=== PATIENT | female | born 1955 | race Caucasian/White ===

== ENCOUNTER 2023-11-01 09:15 | Emergency (ER) | payer BC, MEDICARE, SELFPAY ==
[2023-11-01 09:24] VITALS: BP 145/80
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
== END 2023-11-01 10:18 | disposition home or self-care (01) ==
LOC: EMR 09:15
PROVIDERS: EMERGENCY PHYSICIAN Emergency Medicine
DX: S29.012A Strain of muscle and tendon of back wall of thorax, initial encounter (principal); X58.XXXA Exposure to other specified factors, initial encounter
CPT/HCPCS: 99283; 71101

== ENCOUNTER → 2023-12-17 10:19 | Outpatient (REF) | payer OTHER, SELFPAY ==
[2023-12-17 10:58] LABS: % Basophils 1.1 % (0-2); % Eosinophils 4.2 % (0-6); % Immature Granulocytes 0.3 % (0-0.5); % Lymphocytes 31.3 % (20.5-51.1); % Monocytes 7.4 % (1.7-9.3); % Neutrophils 55.7 % (42.2-75.2); Absolute Basophils 0.1 10^3/uL (0-0.2); Absolute Eosinophils 0.3 10^3/uL (0-0.7); Absolute Monocytes 0.5 10^3/uL (0.1-0.6); Absolute Neutrophils 3.6 10^3/uL (1.4-6.5); Hematocrit 40.3 % (37.0-47.0); Mean Corp Hgb Conc. 34.7 g/dL (33.0-37.0); Mean Corpuscular Hgb 31.1 pg (27.0-31.0); Mean Corpuscular Volume 89.6 fL (81.0-99.0); Mean Platelet Volume 9.6 fL (7.4-10.4); Nucleated Red Blood Cells % 0 %; Platelet Count 311 10^3/uL (130-400); Red Cell Dist. Width 11.9 % (11.5-14.5); White Blood Cell Count 6.4 10^3/uL (4.8-10.8)
[2023-12-17 11:28] LABS: ALT (SGPT) 31 U/L (0-35); AST (SGOT) 31 U/L (14-36); Albumin 4.9 g/dl (3.5-5.0); Alkaline Phosphatase 51 U/L (38-126); Amylase 64 U/L (30-110); Blood Urea Nitrogen 17 mg/dl (7-17); Carbon Dioxide 26 mmol/L (22-30); Chloride 105 mmol/L (98-107); Glucose 94 mg/dl (70-99); HDL Cholesterol 66 mg/dl; LDL Cholesterol, Calculated 43 mg/dl; Lipase 77 U/L (23-300); Potassium 4.7 mmol/L (3.5-5.1); Sodium 137 mmol/L (135-145); Total Bilirubin 0.7 mg/dl (0.2-1.3); Total Cholesterol 154 mg/dl (50-199); Total Protein 7.6 g/dl (6.3-8.2); Triglyceride 228 mg/dl (10-149); Very Low Density Lipoprotein 45 mg/dl (0-30); eGFR > 60.00
[2023-12-17 11:55] LABS: TSH 0.57 uIU/ml (0.47-4.68)
== END ==
LOC: REG 10:19
PROVIDERS: ATTENDING PHYSICIAN Nurse Practitioner
DX: I25.119 Atherosclerotic heart disease of native coronary artery with unspecified angina pectoris (principal); E78.5 Hyperlipidemia, unspecified; Z00.00 Encounter for general adult medical examination without abnormal findings; Z76.89 Persons encountering health services in other specified circumstances; Z95.5 Presence of coronary angioplasty implant and graft; R10.13 Epigastric pain; M54.16 Radiculopathy, lumbar region
CPT/HCPCS: 36415; 80053; 80061; 82150; 83690; 84443; 85025

== ENCOUNTER 2024-07-23 10:56 | Inpatient (IN) | payer OTHER, SELFPAY ==
[2024-07-23 04:31] VITALS: BP 143/73
--- NOTE | 2024-07-23 05:13 | ED.GENMED ---
History of Present Illness
General
Chief Complaint: Abdominal Pain
Time Seen by Provider: 07/23/24 04:58
History of Present Illness
History of Present Illness:
69-year-old female presents emergency department complaints of epigastric pain. She says she has been getting this pain on and off for about a year, it can last for a week at a time and gets better on its own prickly when she changes her diet.
With this pain, she will feel very nauseous and usually needs to self-induced vomiting. The pain started about 10 days ago, located in the epigastric area but also sometimes located in the back as well. The pain is not ripping or tearing, does not
radiate from the abdomen to the back, and is not associated with chest pain, dyspnea, fever, chills, lower abdominal pain, urinary symptoms, diarrhea, constipation. She started to feel better a few days ago but at around 10 PM last night she again
started to feel the 'pressure' in the epigastric area which is worse than it has been in the past. This prompted her visit here to the ER. She has never had an evaluation of her gallbladder.
Past History
Past History
ED Past Medical History: CAD, HTN and Hypercholesterolemia
ED Past Surgical History: Gynecological
Social History
Tobacco: Non-smoker
Alcohol: None
Drug: None
Personal:
Living: with family
Phy Exam
Physical Exam
Physical Exam:
GENERAL: Alert , in no apparent distress
EYE: pupils equal and reactive
NECK: Supple, no significant adenopathy.
ENT: o/p clr, mmm.
CARDIAC: Regular rate and rhythm .
LUNGS: Clear breath sounds bilaterally, no acute respiratory distress, no wheezes/rales/rhonchi
ABDOMEN: Soft, mild right upper quadrant epigastric tenderness, no r/g, no cvat
NEUROLOGICAL: Alert and oriented, no focal neuro deficits
SKIN: Warm and dry, skin intact.
MUSCULOSKELETAL: No edema, well perfused.
PSYCH: Normal and appropriate interaction.
Course
Orders/Labs/Results
Orders:
Orders
07/23/24 05:05
Complete Blood Count/With Diff Urgent
Comprehensive Metabolic Panel Urgent
Direct Bilirubin Urgent
Comment: ADDON
GGTP Urgent
Comment: ADDON
Lipase Urgent
Comment: ADD ON
07/23/24 05:07
Urinalysis Reflex To Culture Urgent
Date Specimen was Collected: 07/23/24
Time Specimen was Collected: 05:05
07/23/24 05:13
Electrocardiogram (*1) Stat
Reason for Study: Abdominal Pain
EKG- Treatment ONCE
US Abdomen Complete/Upper Urgent
Comment:
Reason For Exam: upper abd pain
07/23/24 05:15
Add On- LAB Urgent
Tests Added?: lipase
07/23/24 07:16
Piperacillin/Tazo 3.375 Gram [Zosyn] 3.375 gram in 50 ml IV NOW
07/23/24 Lunch
NPO
Allow oral meds: Yes
Allow clear liquids: Sips of Clears
07/23/24 10:38
Admit/Transfer Patient As Directed
Co-Sign Provider:
Level of Care: Inpatient admission
Assign to:: Medical/Surgical
Physician / Group: milligan/hospitalist
Diagnosis: pancreatitis
Reason for Hospitalization: pancreatitis
Expected length of stay greater than two midnights?: Yes
ELOS- Estimated Length of Stay in days: 3
I certify the patient meets the requirements for IP care: Yes
PRN Pain Medication Management As Directed
May give lesser potent ordered pain med per pt: Yes
preference::
Protocol:: Medication orders for pain may be administered in a
manner that supports deferring to patient preference
when the pt is:
- Requesting an ordered lesser potent pain medication.
Least to most potent pain medications are defined
as: acetaminophen < NSAID < tramadol < opioids
(morphine, oxycodone, hydromorphone).
- Requesting a lesser dose of the same medication IF
ORDERED.
- Requesting a less intrusive route of administration
if both routes are prescribed by the provider (PO <
IV).
07/23/24 10:39
Code Status As Directed
Resuscitation Status: Full Code
07/23/24 12:54
GASTROINTESTINAL CONSULT Routine
Consulting Provider: Lin Landon
Was physician already notified: Yes
07/23/24 13:09
Acetaminophen [Tylenol] 650 mg PO Q4HPRN PRN
Bisacodyl [Dulcolax] 10 mg RECTAL [id number] PRN
Docusate W/Senna [Senokot-S] 1 tablet PO BIDPRN PRN
HYDROmorphone [Dilaudid] 0.25 mg IV Q4HPRN PRN
Lactated Ringers [Lr] 1,000 ml IV 250 mls/hr
Ondansetron Injectable [Zofran] 4 mg IV Q6HPRN PRN
Oxycodone [Roxicodone] 5 mg PO Q4HPRN PRN
Polyethylene Glycol Powder [Miralax] 17 grams PO DAILYPRN PRN
07/23/24 13:09
Activity As Directed
Activity Level: Out of Bed-Early Mobility
Vital Signs As Directed
Frequency: Per unit guidelines
DX Deep Vein Thrombosis Video Routine
07/23/24 18:00
Enoxaparin Sodium [Lovenox] 40 mg SC QPM
07/24/24 06:23
Complete Blood Count/With Diff IN AM
Comprehensive Metabolic Panel IN AM
Hemoglobin A1c [Glycohemoglobin (HgbA1c)] IN AM
Lipase IN AM
Lipid Profile [Cardiovascular Evaluation] IN AM
07/25/24 07:30
Complete Blood Count/With Diff IN AM
Comprehensive Metabolic Panel IN AM
Lipase IN AM
Abnormal Lab Results
07/23/24
05:05
MCH 31.8 H pg
(27.0-31.0)
Absolute Neuts (auto) 7.9 H 10^3/uL
(1.4-6.5)
Absolute Monos (auto) 0.9 H 10^3/uL
(0.1-0.6)
Lymphocytes % 13.2 L %
(20.5-51.1)
BUN 21 H mg/dl
(7-17)
Glucose 121 H mg/dl
(70-99)
Calcium 10.5 H mg/dl
(8.4-10.2)
Total Bilirubin 1.6 H mg/dl
(0.2-1.3)
Direct Bilirubin 1.0 H mg/dl
(0.0-0.4)
GGT 538 H U/L
(12-43)
AST 671 H* U/L
(14-36)
ALT 610 H* U/L
(0-35)
Lipase 1617 H* U/L
(23-300)
07/23/24 05:05
07/23/24 05:05
Vital Signs
Initial and Last Documented VS:
Initial Vital Signs
Temp Pulse Resp Pulse Ox
98.4 F 79 18 97
07/23/24 04:26 07/23/24 04:26 07/23/24 04:26 07/23/24 04:26
Last Documented Vital Signs
Temp Pulse Resp BP Pulse Ox
97.4 F 59 18 114/51 99
07/24/24 23:54 07/24/24 23:54 07/24/24 23:54 07/24/24 23:54 10/27/24 23:54
*Critical Care Note
Total Time (30-74mins, 75-104mins- exclusive of procedures): Not Applicable
Update Note
Update Note:
Patient presents to the Emergency Department with abdomen and back pain
Number and Complexity of Problems Addressed at the Encounter
� Chronic conditions affecting care:
� Acute Exacerbation and/or Progression of Chronic Illness:
� Differential Diagnosis includes: But not limited to pancreatitis, cholecystitis, cholelithiasis, ACS, etc.
Amount and/or Complexity of Data to be Reviewed and Analyzed
� I performed an independent evaluation of and my interpretation is:
EKG: Read by me, normal sinus rhythm, normal rate, normal axis, no acute ischemia
CT:
Xrays:
Laboratory Studies: lft's, lipase elevaated suspicious for gallstone pancreatitis
Other:us Cholelithiasis with borderline gallbladder wall thickening. Negative sonographic Lua's sign. No findings to suggest biliary tract dilatation.
� Review of other/old records reveals:
� Clinical information was obtained by an independent historian:
� Prescriptions/Medications Considered but not given:
� Further testing considered but not performed:
Risk of Complications and/or Morbidity or Mortality of Patient Management
� Social determinants of health affecting care:
� Discussion with other providers (PCP, Hospitalists, Consultants, etc):
� Escalation of care including admission/observation vs risk of discharge considered:713...pt nontoxic, aware of dx and plan. Based on hx/ phys and labs, suspect gallstone pancreatitis, however US shows nl duct size? May need
MRCP to further evaluate. Consult to GI via tt, will admit to hospitalist, start abx.
ED Attending Note
-
Portions of this chart may have been created with voice recognition software.� Occasional wrong word or��sound alike� substitutions may have occurred due to the inherent limitations of voice recognition software.
Discharge Plan
Departure
Patient Disposition: Admit
Date of Disposition: 07/23/24
Time of Disposition: 07:17
Presentation/result/management discussed w/ accepting MD/DO: Hospitalist
Condition: Fair
Discharge Problem:
Gallstone pancreatitis
Interventions
Interventions:
*Risk Screen - Suicide Last Done: 07/23/24 13:44
*General Assessment Last Done: 07/23/24 04:26
*Neglect/Abuse Screening Last Done: 07/23/24 04:26
ED- Fall Risk Assessment Last Done: 07/23/24 05:11
*ED COVID-19 Vaccine History Last Done: 07/23/24 04:31
*Nursing Disposition Last Done: 07/23/24 13:30
UL-Cvfskr-Uukbzjafbu Assessment Last Done: 07/23/24 05:11
Discharge Date and Time
Discharge Date/Time: 07/23/24 13:30
[2024-07-23 05:19] LABS: Urine Albumin Negative (Neg - Trace); Urine Bilirubin Negative (Negative); Urine Character Slightly Cloudy (Clear); Urine Color Yellow; Urine Glucose Negative (Negative); Urine Ketone Negative (Negative); Urine Leukocyte Negative (Negative); Urine Nitrite Negative (Negative); Urine Occult Blood Negative (Negative); Urine Urobilinogen Negative (Neg - 1+); Urine pH 6.5 (5.0-9.0)
[2024-07-23 05:19] LABS: % Basophils 0.8 % (0-2); % Eosinophils 2.8 % (0-6); % Immature Granulocytes 0.2 % (0-0.5); % Lymphocytes 13.2 % (20.5-51.1); % Monocytes 8.1 % (1.7-9.3); % Neutrophils 74.9 % (42.2-75.2); Absolute Basophils 0.1 10^3/uL (0-0.2); Absolute Eosinophils 0.3 10^3/uL (0-0.7); Absolute Lymphocytes 1.4 10^3/uL (1.2-3.4); Absolute Monocytes 0.9 10^3/uL (0.1-0.6); Absolute Neutrophils 7.9 10^3/uL (1.4-6.5); Hematocrit 41.4 % (37.0-47.0); Hemoglobin 14.5 g/dL (12.0-16.0); Mean Corpuscular Hgb 31.8 pg (27.0-31.0); Mean Corpuscular Volume 90.8 fL (81.0-99.0); Mean Platelet Volume 10.1 fL (7.4-10.4); Nucleated Red Blood Cells % 0 %; Platelet Count 310 10^3/uL (130-400); Red Blood Cell Count 4.56 10^6/uL (4.20-5.40); Red Cell Dist. Width 11.7 % (11.5-14.5); White Blood Cell Count 10.6 10^3/uL (4.8-10.8)
[2024-07-23 05:42] LABS: Blood Urea Nitrogen 21 mg/dl (7-17)
[2024-07-23 05:48] LABS: ALT (SGPT) 610 U/L (0-35); AST (SGOT) 671 U/L (14-36); Alkaline Phosphatase 87 U/L (38-126); Calcium 10.5 mg/dl (8.4-10.2); Carbon Dioxide 26 mmol/L (22-30); Chloride 101 mmol/L (98-107); Glucose 121 mg/dl (70-99); Potassium 4.5 mmol/L (3.5-5.1); Sodium 140 mmol/L (135-145); Total Bilirubin 1.6 mg/dl (0.2-1.3); Total Protein 7.8 g/dl (6.3-8.2); eGFR > 60.00
[2024-07-23 06:16] LABS: Lipase 1617 U/L (23-300)
[2024-07-23 07:00] VITALS: BP 141/75
[2024-07-23 08:00] VITALS: BP 143/73
[2024-07-23] MEDS: ZOSYN 50 IV (08:32)
--- NOTE | 2024-07-23 09:13 | CON.GI ---
Consultation
-
Date/Time Consultation Requested: 07/23/2024
Date/Time Consultation Performed: 07/23/2024
Requesting Provider: Dr. Ellis
Performing Provider: Dr. Landon
Reason for Consultation: Epigastric pain
Medical History
Chief Complaint / HPI
Chief Complaint: Epigastric pain
History of Present Illness:
69-year-old female with history of hypertension, high cholesterol, CAD presenting with complaints of intermittent epigastric pain on and off in the last year, recent episode going on for the last 10 days with some radiation to the back. In the
emergency room, CBC was normal, CMP showed elevated total bilirubin at 1.6, AST of 671, ALT of 610, alkaline phosphatase of 87. Previous LFTs from November 2023 in normal range. Lipase was elevated at 1617. She had abdominal ultrasound that showed
cholelithiasis with borderline gallbladder wall thickening, no evidence of biliary ductal dilation and Lua sign was negative.
She reports that the pain would last for a few hours or sometimes a few days. Normally there is no radiation but today she did have some radiation to the back. No nausea or vomiting. No heartburn but she does report burping. No trouble
swallowing. Normal bowel pattern is 1 formed stool a day, no pushing or straining. No blood or black stool. No unintentional weight loss. Never had a colonoscopy.
No family history of colon cancer or colon polyps. History of gallbladder disease and aunts. Does not smoke or drink alcohol..
Past Medical History
Past Medical History: CAD, HTN and Hypercholesterolemia
Social History
Tobacco: Non-Smoker
Alcohol: None
Family History
Family History: Reviewed & Not Pertinent
Allergies / Home Medications
Allergy/AdvReac Type Severity Reaction Status Date / Time
NKA - No Known Allergies Allergy Unknown Uncoded 07/23/24 04:24
�Medication �Instructions �Recorded
ofloxacin 0.3 % eye drops 2 drp ophthalmic (eye) QID #5 mL 11/01/23
Review of Systems
-
All other systems: A 12 pt ROS was Negative except as stated above in HPI
Vital Signs
Temp Pulse Resp BP Pulse Ox
98.4 F 82 16 143/73 95
07/23/24 04:26 07/23/24 08:15 07/23/24 08:15 07/23/24 08:00 07/23/24 08:15
Physical Exam
Exam
HEENT: Normocephalic
Respiratory: Clear
Cardiac: S1/S2 and Regular Rhythm
GI: Soft, Non Tender, Non Distended and Normal Bowel Sounds
Neuro: AO x 3
Results
WBC 10.6 10^3/uL (4.8-10.8) 07/23/24 05:05
Hgb 14.5 g/dL (12.0-16.0) 07/23/24 05:05
Hct 41.4 % (37.0-47.0) 07/23/24 05:05
MCV 90.8 fL (81.0-99.0) 07/23/24 05:05
Plt Count 310 10^3/uL (130-400) 07/23/24 05:05
Absolute Neuts (auto) 7.9 10^3/uL (1.4-6.5) H 07/23/24 05:05
Sodium 140 mmol/L (135-145) 07/23/24 05:05
Potassium 4.5 mmol/L (3.5-5.1) 07/23/24 05:05
Chloride 101 mmol/L (98-107) 07/23/24 05:05
Carbon Dioxide 26 mmol/L (22-30) 07/23/24 05:05
BUN 21 mg/dl (7-17) H 07/23/24 05:05
Creatinine 1.0 mg/dL (0.6-1.0) 07/23/24 05:05
Calcium 10.5 mg/dl (8.4-10.2) H 07/23/24 05:05
Total Bilirubin 1.6 mg/dl (0.2-1.3) H 07/23/24 05:05
AST 671 U/L (14-36) H* 07/23/24 05:05
ALT 610 U/L (0-35) H* 07/23/24 05:05
Alkaline Phosphatase 87 U/L (38-126) 07/23/24 05:05
Lipase Cancelled 07/23/24 05:12
Diagnostic Image Results:
Prior GI Procedures:
EGD:
Colonoscopy:
Assessment / Plan
-
69-year-old female with history of hypertension, high cholesterol, CAD presenting with epigastric pain, elevated LFTs and ultrasound showing gallstones with some wall thickening, elevated lipase noted as well.
-Gallstone pancreatitis, ultrasound findings cannot rule out acute cholecystitis as well
OK for clear liquid diet.
Ringer lactate at 125 cc an hour
Will check MRI/MRCP to rule out choledocholithiasis.
Monitor electrolytes and replete
Eventually needs lap heber,await MRI/MRPC .
OP colonoscopy after d/c
Will follow
-
-
Thank you for consultation and allowing me to participate in the patient's care. Please call the university relations director GI physician during the after hours with any questions or concerns.
--- NOTE | 2024-07-23 10:42 | HPS.HSE ---
Family Physician
-
Family Physician: * NONE
Chief Complaint
-
abdomen discomfort
History of Present Illness
69-year-old female presenting to the hospital with complaint of abdominal pain with radiation to the back. States she has been getting abdominal pain on and off for the past 1 year. Usually it last for a week and then eventually gets better with
improvement in her diet. States with the abdominal pain she usually feels nauseous and she self induces vomiting which improves her symptoms. States abdominal discomfort/pain usually is located epigastric region. However now it was radiating to
her back which made her concerned to come into the ER. Denies any diarrhea. Has not seen PCP or other physician regards for the abdominal pain for the last 1 year. Denies any left-sided substernal chest pain, shortness of breath, PND, orthopnea
lower extremity edema or swelling. Denies any diarrhea. Denies any fevers or chills. Denies any prior history of gall stones or gallbladder related problem however has not seen a PCP or other physician for her abdominal discomfort. Denies
alcohol intake.
Medical History
Past Medical History
Past Medical History: Reports Other
Additional Past Medical History:
CAD status post angioplasty
Hypertension primary
Hyperlipidemia
Obesity
Past Surgical History: Reports Gynocological
Social History
Tobacco: Non-smoker
Alcohol: None
Drug: None
Living: With Family
Employment: Employed
Family History
Family History: Not pertinent
Allergies / Home Medications
Allergies reflects when Allergies were last updated in [employer].
Home Medications with original date entered in [employer]
Allergy/Medication List:
Allergies
Allergy/AdvReac Type Severity Reaction Status Date / Time
NKA - No Known Allergies Allergy Unknown Uncoded 07/23/24 04:24
Home Medications
ascorbic acid (vitamin C) 500 mg tablet (Vitamin C) 500 mg PO DAILY 07/23/24
biotin 10,000 mcg chewable tablet (Hair, Skin and Nails (biotin)) 20,000 mcg PO BID 07/23/24
calcium 500 mg (carb,gluconate)-magnesium 250 mg (gluc,oxide) tablet (Calcium Magnesium) 1 tab PO BID 07/23/24
ezetimibe 10 mg tablet 10 mg PO HS 07/23/24
lisinopril 10 mg tablet 10 mg PO DAILY 07/23/24
rosuvastatin 5 mg tablet 5 mg PO HS 07/23/24
Review of Systems
-
History Source: Patient
A 12 point ROS was completed and negative except as noted: Yes
Physical Exam
Vital Signs
Vital Signs
Temp Pulse Resp BP Pulse Ox
98.4 F 82 16 143/73 95
07/23/24 04:26 07/23/24 08:15 07/23/24 08:15 07/23/24 08:00 07/23/24 08:15
Physical Exam
General: Well Developed, Well Nourished and No Apparent Distress
HEENT: NormoCephalic, Moist mucous membranes and Atraumatic
Respiratory: Clear
Cardiac: S1/S2 and Regular Rhythm; No Murmur or Rub
GI: Soft, Non Tender, Non Distended and Normal Bowel Sounds; No Organomegaly
Rectal: Deferred by Provider
Musculoskeletal: No Clubbing, No Cyanosis and No Edema
Skin: Warm; No Rash
Neuro: Awake, Alert, Oriented, AO x 3, No Motor Deficits and Nonfocal/grossly intact
Psych: Calm
Laboratory Results
-
07/23/24 05:05
07/23/24 05:05
Laboratory Results
Total Bilirubin 1.6 mg/dl (0.2-1.3) H 07/23/24 05:05
AST 671 U/L (14-36) H* 07/23/24 05:05
ALT 610 U/L (0-35) H* 10/26/24 05:05
Alkaline Phosphatase 87 U/L (38-126) 07/23/24 05:05
Lipase Cancelled 07/23/24 05:12
Impression/Plan
-
#Transaminitis likely secondary to gallstone pancreatitis
#Epigastric pain likely secondary to pancreatitis likely secondary gallstones
NPO.
Start aggressive IV fluids LR 250 cc x 2 L and then decrease rate to 125 cc/h.
Hold further IV antibiotics. Afebrile. WBC normal mentation normal. BP stable.
Abdominal ultrasound with cholelithiasis with borderline gallbladder wall thickening. Negative Lua sign. No finding to suggest biliary tract dilatation
Probably will need further imaging either CT abdomen/pelvis versus MRCP
Pain control
IV fluids
Check lipid panel/A1C
Calcium 10.5 likely seen due to dehydration. No prior history of hypercalcemia.
Add direct Bili and GGT
IV PPI
Await further GI recs
CAD status post angioplasty
Hold statin
Primary hypertension
Continue with lisinopril
Hyperlipidemia
Hold statin for now
Continue Zetia
DVT prophylaxis with Lovenox
Full code
I spent a total of 77 minutes with the patient or on the floor. More than 50% of this time involved counseling and coordination of care.
--- NOTE | 2024-07-23 11:41 | CM ---
CM reviewed chart. CM introduced self and role. Antonia shared that she lives with her mother in a 2 story home. Her mother lives on the 1st floor and she lives on the 2nd floor. Patient drives. She drove herself to the hospital and would like to
drive herself home as well. She is independent. Does not utilize any DME but owns canes and walkers. She denies any +SDOHs. She has an active PCP and pharmacy.
ANTICIPATED DISCHARGE PLAN: Home with mother when medically cleared from hospital.
--- NOTE | 2024-07-23 13:30 | PTCARENOTE ---
Pt arrived to rm [id number] at this time from the ED. Pt AAOx3, denying any pain, no SOB, med/surg admission. See shift assessment for further detail. Oriented pt to rm, plan of care, ordering meals, PRN pain meds, call brown, reporting concerns etc- pt
verbalized understanding. Call brown within reach, will monitor.
[2024-07-23 13:32] VITALS: BP 147/79; BMI 29.1
[2024-07-23] MEDS: LR 1000 IV ×3 (14:24→22:26)
[2024-07-23] MEDS: PROTONIX IV 40 MG IV (14:25)
[2024-07-23] MEDS: NSS (PRESERVATIVE FREE) 10 ML IV (14:25)
[2024-07-23 15:23] VITALS: BP 149/74
[2024-07-23 17:00] LABS: GGTP 538 U/L (12-43)
[2024-07-23] MEDS: ZETIA 10 MG PO (21:33)
[2024-07-23 23:33] VITALS: BP 126/68
[2024-07-24] MEDS: LR 1000 IV ×2 (05:57→17:46)
[2024-07-24 07:55] VITALS: BP 137/66
[2024-07-24 08:01] LABS: % Immature Granulocytes 0.2 % (0-0.5); % Monocytes 8.8 % (1.7-9.3); Absolute Basophils 0.1 10^3/uL (0-0.2); Absolute Eosinophils 0.6 10^3/uL (0-0.7); Absolute Lymphocytes 1.8 10^3/uL (1.2-3.4); Absolute Monocytes 0.5 10^3/uL (0.1-0.6); Absolute Neutrophils 2.1 10^3/uL (1.4-6.5); Hemoglobin 12.4 g/dL (12.0-16.0); Mean Corp Hgb Conc. 34.4 g/dL (33.0-37.0); Mean Corpuscular Hgb 31.3 pg (27.0-31.0); Mean Corpuscular Volume 90.9 fL (81.0-99.0); Mean Platelet Volume 10.5 fL (7.4-10.4); Nucleated Red Blood Cells % 0 %; Platelet Count 250 10^3/uL (130-400); Red Blood Cell Count 3.96 10^6/uL (4.20-5.40); Red Cell Dist. Width 11.9 % (11.5-14.5); White Blood Cell Count 5.1 10^3/uL (4.8-10.8)
[2024-07-24 08:15] LABS: ALT (SGPT) 551 U/L (0-35); AST (SGOT) 310 U/L (14-36); Alkaline Phosphatase 68 U/L (38-126); Blood Urea Nitrogen 12 mg/dl (7-17); Calcium 9.8 mg/dl (8.4-10.2); Carbon Dioxide 25 mmol/L (22-30); Chloride 107 mmol/L (98-107); Estimated Creatinine Clearance 56 ml/min; Glucose 88 mg/dl (70-99); HDL Cholesterol 51 mg/dl; LDL Cholesterol, Calculated 44 mg/dl; Lipase 101 U/L (23-300); Potassium 4.5 mmol/L (3.5-5.1); Sodium 141 mmol/L (135-145); Total Bilirubin 0.6 mg/dl (0.2-1.3); Total Cholesterol 129 mg/dl (50-199); Total Protein 6.1 g/dl (6.3-8.2); Triglyceride 174 mg/dl (10-149); Very Low Density Lipoprotein 34 mg/dl (0-30); eGFR > 60.00
[2024-07-24] MEDS: PROTONIX IV 40 MG IV (08:54)
[2024-07-24] MEDS: NSS (PRESERVATIVE FREE) 10 ML IV (08:54)
[2024-07-24] MEDS: ZESTRIL 10 MG PO (10:45)
--- NOTE | 2024-07-24 10:52 | W.PN.HOSP.TC ---
Today's Communication/Plan
-
Await MRCP results
IVF in the interim
GI recs
trend lfts
Assessment / Plan
Assessment / Plan
General: Well Developed, Well Nourished and No Apparent Distress
HEENT: NormoCephalic, Moist mucous membranes and Atraumatic
Respiratory: Clear
Cardiac: S1/S2 and Regular Rhythm; No Murmur or Rub
GI: Soft, Non Tender, Non Distended and Normal Bowel Sounds; No Organomegaly
Rectal: Deferred by Provider
Musculoskeletal: No Clubbing, No Cyanosis and No Edema
Skin: Warm; No Rash
Neuro: Awake, Alert, Oriented, AO x 3, No Motor Deficits and Nonfocal/grossly intact
Psych: Calm
#Transaminitis likely secondary to gallstone pancreatitis
#Epigastric pain likely secondary to pancreatitis likely secondary gallstones
NPO and will for MRI results.
s/p IV fluids LR 250 cc x 2 L and then decreased rate to 125 cc/h.
Hold further IV antibiotics. Afebrile. WBC normal mentation normal. BP stable.
Abdominal ultrasound with cholelithiasis with borderline gallbladder wall thickening. Negative Lua sign. No finding to suggest biliary tract dilatation
MRCP pending fortoday.
Pain control
Lipid panel noted
Calcium 10.5 likely seen due to dehydration. No prior history of hypercalcemia. Improved
LFTs are improving. ?probably passed gallstone
Lipase downtrended.
IV PPI
Await further GI recs
CAD status post angioplasty
Hold statin
Primary hypertension
Continue with lisinopril
Hyperlipidemia
Hold statin for now
Continue Zetia
DVT prophylaxis with Lovenox
Full code
Anticipated Discharge: > 48 hours
Subjective/Interval History
-
Date of Service: July 24, 2024
denies abd pain or nausea or vomiting
Objective Data
-
Labs:
Laboratory Results
07/24/24
06:23
WBC 5.1
Hgb 12.4
Hct 36.0 L
Plt Count 250
Sodium 141
Potassium 4.5
Chloride 107
Carbon Dioxide 25
BUN 12
Creatinine 0.9
Glucose 88
Calcium 9.8
Total Bilirubin 0.6 D
AST 310 H
ALT 551 H*
Alkaline Phosphatase 68
Vital Signs:
Vital Signs
Temp Pulse Resp BP Pulse Ox
98 F 66 16 132/67 94
07/24/24 07:55 07/24/24 10:45 07/24/24 07:55 07/24/24 10:45 07/24/24 08:00
I&O
07/23/24 07/24/24 07/25/24
06:59 06:59 06:59
Intake Total 2870 / 2870
Balance 2870 / 2870
Data Reviewed
-
Total Time Spent with Patient (in minutes): 51
[2024-07-24 12:47] LABS: Glycohemoglobin (HgbA1c) 5.4 % (4.0-5.6)
--- NOTE | 2024-07-24 14:01 | W.PN.GI.CBS2 ---
Today's Communication / Plan
-
-Gallstone pancreatitis, ultrasound findings cannot rule out acute cholecystitis as well
MRI with MRCP showing multiple small gallstones without any evidence of acute cholecystitis or choledocholithiasis.
LFTs trending down, bilirubin normalized. Lipase normalized.
Symptoms of epigastric pain with transient elevation in lipase suggesting pancreatitis likely related to gallstones.
Given no symptoms, okay with low-fat diet.
Surgical evaluation for eventual laparoscopic cholecystectomy
OP colonoscopy after d/c
Assessment / Plan
-
69-year-old female with history of hypertension, high cholesterol, CAD presenting with epigastric pain, elevated LFTs and ultrasound showing gallstones with some wall thickening, elevated lipase noted as well.
-Gallstone pancreatitis, ultrasound findings cannot rule out acute cholecystitis as well
MRI with MRCP showing multiple small gallstones without any evidence of acute cholecystitis or choledocholithiasis.
LFTs trending down, bilirubin normalized. Lipase normalized.
Symptoms of epigastric pain with transient elevation in lipase suggesting pancreatitis likely related to gallstones.
Given no symptoms, okay with low-fat diet.
Surgical evaluation for eventual laparoscopic cholecystectomy
OP colonoscopy after d/c
Subjective
Subjective
Date of Service: July 24, 2024
Patient denies any abdominal pain, nausea or vomiting. Feels well.
Objective
Data Reviewed
Laboratory Data:
Laboratory Results
07/24/24 06:23
07/24/24 06:23
Laboratory Results
Total Bilirubin 0.6 mg/dl (0.2-1.3) D 07/24/24 06:23
AST 310 U/L (14-36) H 07/24/24 06:23
ALT 551 U/L (0-35) H* 07/24/24 06:23
Alkaline Phosphatase 68 U/L (38-126) 07/24/24 06:23
Lipase 101 U/L (23-300) 07/24/24 06:23
Vital Signs and I&O:
Vital Signs
Temp Pulse Resp BP Pulse Ox
98 F 66 16 132/67 94
07/24/24 07:55 07/24/24 10:45 07/24/24 07:55 07/24/24 10:45 07/24/24 08:00
I&O
07/23/24 07/24/24 07/25/24
06:59 06:59 06:59
Intake Total 2870 / 2870
Balance 2870 / 2870
Physical Exam
Physical Exam
GI: Soft, Non Distended and Non Tender
[2024-07-24 15:06] VITALS: BP 135/63
--- NOTE | 2024-07-24 16:15 | CON.GS ---
Medical History
-
Chief Complaint: abdominal pain
History of Present Illness:
Ms Harper is a patient with a h/o CAD, KS and HTN who presented through the ED with epigastric and band like pain across her upper abdomen. She reports a history of intermittent pain just below the epigastric area with heaviness over the past
year. She found that self inducing vomiting helped somewhat with this. She has also been avoiding high fat foods and eating healthily. She notes that she can go a few months without an episode and then have several within the course of a few days. A
week ago, she began having a similar episode after having a roast beef sandwich but vomiting did not help. She notes the pain was intermittent through the week and since it was a little higher; she became concerned it was her heart and presented to
the ED for evaluation. She denies fevers or chills. She denies jaundice or acholic stools but notes that for the last week her urine has been very dark.
Past Medical History
Past Medical History: CAD (s/p angioplasty), HTN, Hypercholesterolemia, KS and Other (obesity)
Past Surgical History: Gynecological (D&C)
Social History
Tobacco: Non-Smoker
Alcohol: None
Living: With Family
Employment: Employed (owns a [employer])
Family History
Family History: Reviewed & Not Pertinent
Allergies / Home Medications
Allergy/AdvReac Type Severity Reaction Status Date / Time
No Known Allergies Allergy Unverified 07/23/24 14:33
�Medication �Instructions �Recorded �Confirmed �Type
ascorbic acid (vitamin C) 500 mg 500 mg PO DAILY Supplement 07/23/24 07/23/24 History
tablet (Vitamin C)
biotin 10,000 mcg chewable tablet 20,000 mcg PO BID Supplement 07/23/24 07/23/24 History
(Hair, Skin and Nails (biotin))
calcium 500 mg 1 tab PO BID Supplement 07/23/24 07/23/24 History
(carb,gluconate)-magnesium 250 mg
(gluc,oxide) tablet (Calcium
Magnesium)
ezetimibe 10 mg tablet 10 mg PO HS High Cholesterol 07/23/24 07/23/24 History
lisinopril 10 mg tablet 10 mg PO DAILY Blood Pressure 07/23/24 07/23/24 History
rosuvastatin 5 mg tablet 5 mg PO HS High Cholesterol 07/23/24 07/23/24 History
Review of Systems
-
History Source: Patient
All other systems: Negative unless noted
A 10 point review of systems was completed, and was negative except as per HPI.
Physical Exam
Vital Signs
Temp Pulse Resp BP Pulse Ox
98 F 87 16 135/63 98
07/24/24 15:06 07/24/24 15:06 07/24/24 15:06 07/24/24 15:06 07/24/24 15:06
07/23/24 07/24/24 07/25/24
06:59 06:59 06:59
Actual Weight 72.03 kg
Body Mass Index (BMI) 29.1
Lab Results
07/24/24 06:23
07/24/24 06:23
WBC 5.1 10^3/uL (4.8-10.8) 07/24/24 06:23
Hgb 12.4 g/dL (12.0-16.0) 07/24/24 06:23
Hct 36.0 % (37.0-47.0) L 07/24/24 06:23
Plt Count 250 10^3/uL (130-400) 07/24/24 06:23
Abs Immat Gran (auto) 0.0 10^3/uL (0-0.05) 07/24/24 06:23
Neutrophils % 42.0 % (42.2-75.2) L 07/24/24 06:23
Physical Exam
General: Well Developed and Well Nourished
HEENT: Moist Mucous Membranes
Respiratory: Non Labored Respirations
GI: Soft, Non Tender and Non Distended
Skin: Warm and Dry
Neuro: Awake
Psych: Calm
Data Reviewed
-
Radiology: Image Personally Visualized and interpreted (cholelithiasis and borderline gallbladder wall thickening), Report Reviewed by me and Discussed with Patient
MRI: Image Personally Visualized and interpreted (Multiple small gallstones. No evidence of acute cholecystitis. No ducts within the CBD), Report Reviewed by me, Discussed with Physician and Discussed with Patient
Labs: Labs Reviewed by me
Assessment / Plan
-
69 yo female with h/o KS and CAD with biliary colic symptoms over the past year presenting with persistent pain. Labs and exams consistent with gallstone pancreatitis. MRCP without choledocholithiasis but given labs and symptoms on presentation,
suspect passed stone. She is afebrile with stable vital signs and no leukocytosis. Lipase and bilirubin have normalized with improvement in transaminitis. Pain has resolved.
Would recommend cholecystectomy to prevent future episodes. Timing discussed with patient, ideally would take place during this admission.
--Diet today as per GI
--NPO after MN for OR
--IV ABX program consultant to OR
--Medical management as per primary team
[2024-07-24] MEDS: ZETIA 10 MG PO (21:04)
[2024-07-24 23:54] VITALS: BP 114/51
[2024-07-25] VITALS (12 sets, daily range): BP systolic 111–155; BP diastolic 45–75
[2024-07-25] MEDS: LR 1000 IV ×2 (03:02→12:27)
[2024-07-25] MEDS: NSS (PRESERVATIVE FREE) 10 ML IV (08:20)
[2024-07-25] MEDS: ZESTRIL 10 MG PO (08:20)
[2024-07-25] MEDS: PROTONIX IV 40 MG IV (08:20)
[2024-07-25 08:43] LABS: % Basophils 1.6 % (0-2); % Eosinophils 9.7 % (0-6); % Immature Granulocytes 0.2 % (0-0.5); % Lymphocytes 28.2 % (20.5-51.1); % Monocytes 7.1 % (1.7-9.3); % Neutrophils 53.2 % (42.2-75.2); Absolute Basophils 0.1 10^3/uL (0-0.2); Absolute Eosinophils 0.6 10^3/uL (0-0.7); Absolute Lymphocytes 1.6 10^3/uL (1.2-3.4); Absolute Monocytes 0.4 10^3/uL (0.1-0.6); Absolute Neutrophils 3.1 10^3/uL (1.4-6.5); Hematocrit 35.7 % (37.0-47.0); Hemoglobin 12.3 g/dL (12.0-16.0); Mean Corp Hgb Conc. 34.5 g/dL (33.0-37.0); Mean Corpuscular Hgb 31.6 pg (27.0-31.0); Mean Corpuscular Volume 91.8 fL (81.0-99.0); Mean Platelet Volume 10.3 fL (7.4-10.4); Nucleated Red Blood Cells % 0 %; Platelet Count 263 10^3/uL (130-400); Red Blood Cell Count 3.89 10^6/uL (4.20-5.40); White Blood Cell Count 5.8 10^3/uL (4.8-10.8)
[2024-07-25 08:54] LABS: APTT 29.6 Sec (23.4-35.0); INR 1.08; PT 13.8 Sec (11.4-14.6)
[2024-07-25 09:09] LABS: ALT (SGPT) 343 U/L (0-35); AST (SGOT) 103 U/L (14-36); Alkaline Phosphatase 62 U/L (38-126); Blood Urea Nitrogen 10 mg/dl (7-17); Calcium 9.8 mg/dl (8.4-10.2); Carbon Dioxide 25 mmol/L (22-30); Chloride 106 mmol/L (98-107); Estimated Creatinine Clearance 56 ml/min; Glucose 89 mg/dl (70-99); Lipase 119 U/L (23-300); Sodium 143 mmol/L (135-145); Total Bilirubin 0.5 mg/dl (0.2-1.3); Total Protein 6.3 g/dl (6.3-8.2); eGFR > 60.00
--- NOTE | 2024-07-25 09:39 | W.PN.HOSP.TC ---
Today's Communication/Plan
-
see A/P
Assessment / Plan
Assessment / Plan
A/P:
# Transaminitis secondary to gallstone pancreatitis, improving
# Epigastric pain due to above
Abdominal ultrasound with cholelithiasis with borderline gallbladder wall thickening. Negative Lua sign. No finding to suggest biliary tract dilatation
MRCP noted Multiple small gallstones within the gallbladder. No MR evidence of acute cholecystitis. No common bile duct stones. No significant biliary ductal dilation.
For lap heber by GS today
Cont to monitor LFT
lipase level has normalized
# CAD status post angioplasty
Hold statin
# Primary hypertension
Continue with lisinopril
# Hyperlipidemia
Hold statin for now
Continue Zetia
DVT prophylaxis with Lovenox
Full code
Anticipated Discharge: 24 - 48 hours
Subjective/Interval History
-
Date of Service: July 25, 2024
Objective Data
-
Labs:
Laboratory Results
07/25/24
07:30
WBC 5.8
Hgb 12.3
Hct 35.7 L
Plt Count 263
PT 13.8
INR 1.08
APTT 29.6
Sodium 143
Potassium 4.0
Chloride 106
Carbon Dioxide 25
BUN 10
Creatinine 0.9
Glucose 89
Calcium 9.8
Total Bilirubin 0.5
AST 103 H
ALT 343 H
Alkaline Phosphatase 62
Vital Signs:
Vital Signs
Temp Pulse Resp BP Pulse Ox
36.6 C 66 18 131/65 96
07/25/24 07:01 07/25/24 07:01 07/25/24 07:01 07/25/24 07:01 07/25/24 07:01
I&O
1007/25/24 07/26/24
06:59 06:59 06:59
Intake Total 2870 / 2870 2945 / 2945
Balance 2870 / 2870 2945 / 2945
Review of Systems
-
All other systems: Reviewed and negative
Abdomen/GI: Denies Abdominal Pain
Physical Exam
-
General: Well Developed, Well Nourished, No Apparent Distress, Comfortable and Conversant; Negative Respiratory Distress
HEENT: Normocephalic, Atraumatic, Nose Appears Normal and Ears Appear Normal; Negative Oxygen
Respiratory: Clear to Auscultation and Non Labored Respirations; Negative Accessory Resp Muscle Use
Cardiac: Regular Rhythm and S1/S2
GI: Soft, Nontender, Nondistended and Normal Bowel Sounds
Skin: Warm and Dry
Neuro: Awake, Alert, Oriented and AO x 3
Psych: Calm and Intact Judgement/Insight
Data Reviewed
-
Labs: Labs Reviewed by me
--- NOTE | 2024-07-25 11:20 | W.SUR.PREOP ---
Pre-Operative Surgical Note
-
I have examined this patient prior to the performance of the scheduled procedure.
The patient's condition is unchanged from the time of the current History and
Physical and the patient is able to undergo the scheduled procedure.
--- NOTE | 2024-07-25 12:37 | PTCARENOTE ---
Pt is off the floor to OR at this time. CHG wipes and betadine swabs completed. Report given to Carol.
--- NOTE | 2024-07-25 14:16 | W.IMMPOSTOP ---
Surgical Immed Post Op Note
-
Primary Surgeon: Darell Gray MD
Assisting Surgeon: None
Pre-op Diagnosis: Biliary pancreatitis
Post-op Diagnosis: Same
Procedure Performed: Laparoscopic cholecystectomy with cholangiogram
Anesthesia Type: General
Specimen / Cultures: Gallbladder
Estimated Blood Loss: 7 cc
Complications: None
Operative Findings: Fairly normal-appearing gallbladder. Critical view of safety obtained prior to a cholangiogram which demonstrated no distal filling defects and other than dilated common bile duct normal biliary anatomy. The cystic duct was
ligated with a clip followed by a 0 PDS Endoloop.
Postop Plan
Imaging: None
Labs: Routine AM
Diet: Advance to Regular as tolerated
Analgesia: Tylenol 650mg q6 Alayna, Lani 5mg q6 PRN, Dilaudid 0.5mg q2h PRN
Neuro/vascular checks: q4h
AC/AP: Hold Therapeutic AC, Ok for DVT PPx
Activity: Ad Yamel
Wound/Incisions/Drains: Routine
Abx: None
Dispo: RNF, anticipate discharge home later tonight versus tomorrow pending clinical course.
--- NOTE | 2024-07-25 14:19 | OR.RPT ---
Operative Report
Operative Report
Patient Name: Antonia Harper
: 1955
Date of Operation: 07/25/2024
Preoperative Diagnosis: Gallstone pancreatitis
Postoperative Diagnosis: Same
Procedure(s):
Laparoscopic Cholecystectomy with Cholangiogram
Surgeon(s):
Dr. Gray
Lamp Shade Maker(s):
EMILY Hernandez
Anesthesia: General
Estimated Blood Loss: 7 cc
Urine Output: None
Drains/Lines/Implants: [None]
Specimens:
1. Gallbladder and contents
HPI/Surgical Indications:
This is a 69 year old [female] who presents with abdominal pain and found to have gallstone pancreatitis. Risks/Benefits/Alternatives were discussed at length, and the patient agreed to proceed with cholecystectomy.
Operative Findings: Fairly normal-appearing gallbladder. Critical view of safety obtained prior to a cholangiogram which demonstrated no distal filling defects and other than dilated common bile duct normal biliary anatomy. The cystic duct was
ligated with a clip followed by a 0 PDS Endoloop.
Procedure Description:
The patient was brought to the Operating Room and placed in the supine position. IV antibiotics were infused and sequential compression devices were confirmed to be on. Following uneventful induction of general endotracheal anesthesia, an
orogastric tube was placed. The abdomen was prepped and draped in the usual sterile fashion. The abdomen was entered using a left subcostal Veress technique which required a single pass followed by a right upper quadrant 5 mm Optiview trocar.
Pneumoperitoneum to 15 mmHg pressure was obtained without difficulty and we confirmed that no injury had occurred during our entry. The patient was positioned in reverse trendelenberg and rotated with the right side up slightly. Two 5mm trocars were
then placed along the right subcostal margin, and a 12 mm port in the epigastrium. A locking grasping forceps was placed on the fundus of the gallbladder where it was then retracted cephalad and to the right. Using appropriate grasping instruments,
the peritoneum overlying the triangle of Calot was incised. The cystic duct/gallbladder junction was identified, dissected circumferentially. The cystic artery was identified medially and was dissected circumferentially. A critical view was
obtained. A clip was then placed on the cystic duct/gallbladder junction and an intraoperative cholangiogram performed using fluoroscopy, which showed good flow of dye into the duodenum. There were no intra- or extrahepatic bile duct filling
defects. The biliary anatomy appeared normal, though the CBD was dilated to roughly 10 mm. Following completion of the cholangiogram, the catheter was removed. Two clips were then placed proximally on the cystic duct and the duct divided. Two
clips were placed proximally and one distally on the cystic artery, and the artery was divided. Remaining soft tissue attachments of the gallbladder to the liver bed were then divided using electrocautery. There was no spillage of bile or stones.
There was a posterior cystic artery that was clipped. The gallbladder bed was inspected and excellent hemostasis was obtained. The gallbladder was extracted through the 12 mm trocar site using an endocatch bag. The abdomen was again irrigated and
excellent hemostasis was assured. The 12 mm trocar site was closed using a figure of 8 of 0 PDS. All remaining trocars were then removed and the pneumoperitoneum was evacuated. All trocar sites were closed at the skin level using 4-0 Monocryl
followed by Dermabond. Overall, the patient tolerated the procedure well and was taken to the Recovery Room postoperatively in stable condition.
I was the attending physician and performed the procedure with assistance from the VIDEO RENTAL CLERK above. I was present for all portions of the case.
Darell Gray MD
--- NOTE | 2024-07-25 16:12 | W.PN.UPDATE ---
Update Note
Progress Note Update
Noted s/p lap heber and negative intra operative cholangiogram. No indication for ERCP.
Will sign off,pls call back if needed
--- NOTE | 2024-07-25 16:20 | PTCARENOTE ---
Pt returned to the floor in her bed from PACU s/p cholecystectomy. Pt is drowsy but responds appropriately to questions. VSS. Pt is now on 3L O2 sat 96%. Pt reporting 3/10 abd pain. x4 lap sites CDI with surgiglue. Pt had call brown in reach and
instructed to ring for assistance if she'd like to get OOB.
--- NOTE | 2024-07-25 17:03 | CM ---
CM following for discharge planning. Antonia was in OR for cholecystectomy, so was unable to speak with her today. Will f/u in AM.
[2024-07-25 19:47] LABS: Hepatitis C Antibody Negative (Negative)
[2024-07-25] MEDS: COLACE 100 MG PO (22:22)
[2024-07-25] MEDS: LR IV (22:22)
--- NOTE | 2024-07-25 23:30 | PTCARENOTE ---
Pt has been voiding qs post op, tolerating diet, and activity OOB to BR. Does not desire any pain medication.
[2024-07-26 03:05] VITALS: BP 130/65
[2024-07-26 06:56] VITALS: BP 164/77
[2024-07-26 08:08] LABS: Hematocrit 36.3 % (37.0-47.0); Hemoglobin 12.7 g/dL (12.0-16.0); Mean Corpuscular Hgb 31.7 pg (27.0-31.0); Mean Corpuscular Volume 90.5 fL (81.0-99.0); Mean Platelet Volume 10.8 fL (7.4-10.4); Platelet Count 290 10^3/uL (130-400); Red Blood Cell Count 4.01 10^6/uL (4.20-5.40); Red Cell Dist. Width 11.7 % (11.5-14.5); White Blood Cell Count 10.8 10^3/uL (4.8-10.8)
[2024-07-26] MEDS: NSS (PRESERVATIVE FREE) 10 ML IV (08:29)
[2024-07-26] MEDS: ZESTRIL 10 MG PO (08:29)
[2024-07-26] MEDS: PROTONIX IV 40 MG IV (08:29)
[2024-07-26] MEDS: FLUSH (NSS) 2 FLUSH IV (08:30)
[2024-07-26 08:48] LABS: ALT (SGPT) 269 U/L (0-35); AST (SGOT) 65 U/L (14-36); Albumin 4.4 g/dl (3.5-5.0); Alkaline Phosphatase 60 U/L (38-126); Blood Urea Nitrogen 12 mg/dl (7-17); Calcium 9.8 mg/dl (8.4-10.2); Carbon Dioxide 23 mmol/L (22-30); Chloride 105 mmol/L (98-107); Estimated Creatinine Clearance 63 ml/min; Glucose 104 mg/dl (70-99); Magnesium 2.3 mg/dl (1.6-2.3); Potassium 4.4 mmol/L (3.5-5.1); Sodium 140 mmol/L (135-145); Total Bilirubin 0.4 mg/dl (0.2-1.3); Total Protein 6.6 g/dl (6.3-8.2); eGFR > 60.00
[2024-07-26] MEDS: COLACE 100 MG PO (08:49)
--- NOTE | 2024-07-26 08:55 | W.PN.GS2 ---
Today's Communication / Plan
-
-- OK for DC from surgical perspective
Assessment / Plan
-
Patient is a 69 yo F s/p gallstone pancreatitis POD#1 s/p laparoscopic cholecystectomy with IOC
Acute on chronic hypertension, stable otherwise
Repeat labs with downtrending LFTs
Stable for discharge from surgical perspective.
-- Regular diet
-- Pain control: Tylenol, Toradol, Oxycodone
-- Abx: none further needed from surgical perspective
-- Home meds, HTN control per Hospitalist
-- DC instructions updated
-- F/u 2-[address] Gray
Subjective Data
-
Date of Service: July 26, 2024
No complaints. Pain well-controlled. No nausea or vomiting. Afebrile. Ambulating. Voiding.
Objective Data
-
Intake and Output
07/25/24 07/26/24 07/27/24
06:59 06:59 06:59
Intake Total 2945 / 2945 230 / 230
Balance 2945 / 2945 230 / 230
Intake:
Oral fluids 720 / 720 130 / 130
IV fluids (Total) 2225 / 2225 100 / 100
Normosol 100 / 100
Other:
Number of approximated MODERATE 2 2
amounts of urine
Vital Signs
Temp Pulse Resp BP Pulse Ox
98.5 F 66 18 164/77 97
07/26/24 03:05 07/26/24 03:05 07/26/24 03:05 07/26/24 08:29 07/26/24 03:05
Lab Results
07/26/24 06:37
07/26/24 06:37
Calcium 9.8 mg/dl (8.4-10.2) 07/26/24 06:37
Magnesium 2.3 mg/dl (1.6-2.3) 07/26/24 06:37
Total Bilirubin 0.4 mg/dl (0.2-1.3) 07/26/24 06:37
Direct Bilirubin 1.0 mg/dl (0.0-0.4) H 07/23/24 05:05
AST 65 U/L (14-36) H 07/26/24 06:37
ALT 269 U/L (0-35) H 07/26/24 06:37
Alkaline Phosphatase 60 U/L (38-126) 07/26/24 06:37
Total Protein 6.6 g/dl (6.3-8.2) 07/26/24 06:37
Albumin 4.4 g/dl (3.5-5.0) 07/26/24 06:37
Physical Exam
-
Gen: NAD
Abd: soft, minimal tenderness, ND, non-peritoneal, incisions c/d/i - no erythema, ecchymosis or drainage
--- NOTE | 2024-07-26 09:35 | W.PN.HOSP.TC ---
Addendum entered and electronically signed by Nicole Gilbert MD 07/26/24 13:19:
total DC time 37 min
Original Note:
Today's Communication/Plan
-
see A/P
Assessment / Plan
Assessment / Plan
A/P:
# Transaminitis secondary to gallstone pancreatitis, improving
# Epigastric pain due to above
Abdominal ultrasound with cholelithiasis with borderline gallbladder wall thickening. Negative Lua sign. No finding to suggest biliary tract dilatation
MRCP noted Multiple small gallstones within the gallbladder. No MR evidence of acute cholecystitis. No common bile duct stones. No significant biliary ductal dilation.
s/p lap heber by 07/25
Cont to monitor LFT outpt with PCP
lipase level has normalized
# CAD status post angioplasty
Hold statin
# Primary hypertension
Continue with lisinopril
# Hyperlipidemia
Hold statin for now
Continue Zetia
DVT prophylaxis with Lovenox
Full code
Anticipated Discharge: Today
Subjective/Interval History
-
Date of Service: July 26, 2024
Objective Data
-
Labs:
Laboratory Results
07/26/24
06:37
WBC 10.8
Hgb 12.7
Hct 36.3 L
Plt Count 290
Sodium 140
Potassium 4.4
Chloride 105
Carbon Dioxide 23
BUN 12
Creatinine 0.8
Glucose 104 H
Calcium 9.8
Total Bilirubin 0.4
AST 65 H
ALT 269 H
Alkaline Phosphatase 60
Vital Signs:
Vital Signs
Temp Pulse Resp BP Pulse Ox
36.8 C 68 20 164/77 97
07/26/24 06:56 07/26/24 06:56 07/26/24 06:56 07/26/24 08:29 07/26/24 06:56
I&O
07/25/24 07/26/24 07/27/24
06:59 06:59 06:59
Intake Total 2945 / 2945 230 / 230
Balance 2945 / 2945 230 / 230
Review of Systems
-
All other systems: Reviewed and negative
Abdomen/GI: Denies Abdominal Pain
Physical Exam
-
General: Well Developed, Well Nourished, No Apparent Distress, Comfortable and Conversant; Negative Respiratory Distress
HEENT: Normocephalic, Atraumatic, Nose Appears Normal and Ears Appear Normal; Negative Oxygen
Respiratory: Clear to Auscultation and Non Labored Respirations; Negative Accessory Resp Muscle Use
Cardiac: Regular Rhythm and S1/S2
GI: Soft, Nontender, Nondistended and Normal Bowel Sounds
Skin: Warm and Dry
Neuro: Awake, Alert, Oriented and AO x 3
Psych: Calm and Intact Judgement/Insight
Data Reviewed
-
Labs: Labs Reviewed by me
[2024-07-26 11:39] VITALS: BP 130/64
--- NOTE | 2024-07-26 13:04 | W.DCSUMMARY ---
Discharge Summary
Discharge Data
Date of Admission: 07/23/24
Date of Discharge: 07/26/24
-
Pending Results: No
Hospital Course
Principal Diagnosis:
Epigastric pain with transaminitis secondary to gallstone pancreatitis
Chronic Diagnoses:�
Coronary artery disease status post angioplasty
Primary hypertension on lisinopril
Hyperlipidemia
Consultations:�
Gastroenterology
General Surgery
Procedures:�
lap heber by general surgeon on 07/25
Clinical course:�
This is a 69-year-old female, with past medical history as stated above, who presented with epigastric abdominal pain. She was also noted to have elevated LFT.
Problem 1:
Epigastric pain with transaminitis secondary to gallstone pancreatitis.
Her abdominal ultrasound noted cholelithiasis with borderline gallbladder wall thickening.
Her MRCP noted Multiple small gallstones within the gallbladder, no common bile duct stones.
Her LFT level normalized with IV fluid.
The patient underwent laparoscopic cholecystectomy by general surgeon on 07/25/2024.
She was able to tolerate diet following the procedure, and was cleared to return home.
She can check repeat LFT with result to here PCP outpatient.
As for the rest of her medical problems, they were stable during her hospital stay.
Discharge Plan
-
Patient Disposition: Home (Routine Discharge)
Discharge Diagnosis/Procedures: Gallstone pancreatitis status post Laparoscopic cholecystectomy with cholangiogram.
Condition: Good
Diet: No restrictions
Activity: No strenuous activity
Driving Restrictions: As prior to admission
Bathing Restrictions: OK to Shower
Blood Work: LFT in 1 week with result to your PCP
Activity Restrictions/Additional Instructions:
Instructions following Laparoscopic Cholecystectomy
Please call [phone] if you have any questions or concerns after your surgery.
Wound Care:
Your incisions are covered with skin glue which will come off on its own in 5-10 days.
It is ok to shower the day after your surgery. Do not scrub the incisions, let soap and water wash over them and pat dry.
� Bruising around your incisions is normal.
� Using ice packs will help minimize this swelling.
� No swimming or soaking incisions for 1 week.
� Your stitches will dissolve and do not need to be removed.
Urinary retention:
If you are unable to urinate 6-8 hours after your surgery, please call [phone] to discuss further management.
Activity:
No heavy lifting more than 15 pounds for the next 3 weeks, then you may gradually lift heavier objects as tolerated by discomfort. Otherwise activity as tolerated by your comfort level.
Pain Management:
Use Tylenol, ibuprofen and ice packs to treat your pain.
� You may take 650 milligrams of Tylenol (Max 3 grams per day) every 6 hours, and 600 mg of ibuprofen also every 6 hours. (you can alternate them every 3 hours)
� You may use an ice pack to your incision as needed.
� If you still have pain not controlled by these measures, take your prescription pain medication as prescribed.
Medications:
You may resume your home medications.
Bowel Medications:
Prescription pain medication can make you constipated. If you take this medication, also take colace 100 mg twice daily (this is over the counter). If this is not sufficient, you may take Miralax (polyethylene glycol) to help move your bowels.
Diet:
After your procedure, there are no dietary restrictions. However, you may notice some loose stools with fatty meals for up to 4 weeks after surgery. If this is the case, please adjust to a low fat diet as needed.
Driving restrictions:
No driving if you are taking prescription pain medication or if you think your normal reaction time and attentiveness has been slowed by your surgery.
Things to Look out for:
Worsening Abdominal pain, fever, jaundice, redness or drainage from incision
Call Doctor for:
Please call if you notice worsening redness or drainage from incision(s) lasting longer than 5 days after your surgery, any foul-smelling drainage from the incision, pain not controlled by pain medications, persistent nausea and vomiting, or for any
fevers greater than 101.3 F. The number for questions/concerns is [phone]
Follow-up:
A follow-up appointment will be scheduled with your surgeon in 3-4 weeks. Please call prior to your appointment if you have any questions or concerns. [phone]
Referrals:
NONE,* [Family Provider] - in less than 1 week
Darell Gray MD [Active] -
Prescriptions:
New
acetaminophen [acetaminophen] 325 mg tablet
650 mg PO Q6HPRN PRN (Reason: mild pain) Qty: 14 0RF
tramadol 50 mg tablet
25 mg PO Q6HPRN PRN (Reason: severe pain/breakthrough pain) Qty: 8 0RF
ibuprofen 600 mg tablet
600 mg PO Q6H PRN (Reason: pain) Qty: 14 0RF
Continued
ascorbic acid (vitamin C) [Vitamin C] 500 mg Tablet
500 mg PO DAILY
lisinopril 10 mg Tablet
10 mg PO DAILY
ezetimibe 10 mg Tablet
10 mg PO HS
rosuvastatin 5 mg Tablet
5 mg PO HS
Calcium Magnesium 500 mg calcium- 250 mg Tablet
1 tab PO BID
Hair, Skin and Nails (biotin) 10,000 mcg Tablet,Chewable
20,000 mcg PO BID
Discharge Orders:
Discharge Patient (As Directed); Ordered 07/26/24
Ordered By: Nicole Gilbert
Discharge Date and Time
Discharge Date/Time: 07/26/24 12:02
Print Language: TRISTANIAN
== END 2024-07-26 12:02 | disposition home or self-care (01) | DRG 419 ==
LOC: 4 EAST ACU 10:56
PROVIDERS: Surgery; ADMITTING PHYSICIAN Hospitalist; ATTENDING PHYSICIAN Internal Medicine; CONSULT PHYSICIAN Internal Medicine Gastroenterology; CONSULT PHYSICIAN Surgery; EMERGENCY PHYSICIAN Emergency Medicine
PROC: BF502Z0 Other Imaging of Bile Ducts using Fluorescing Agent, Intraoperative (ICD-10-PCS; 2024-07-25)
PROC: 0FT44ZZ Resection of Gallbladder, Percutaneous Endoscopic Approach (ICD-10-PCS; 2024-07-25)
DX: K85.10 Biliary acute pancreatitis without necrosis or infection (principal); I25.10 Atherosclerotic heart disease of native coronary artery without angina pectoris; I10 Essential (primary) hypertension; E66.9 Obesity, unspecified; Z68.29 Body mass index [BMI] 29.0-29.9, adult
CPT/HCPCS: 88304; 71045; 74183; 74300; 76000; 76700; 80053; 80061; 81003; 82248; 82977; 83036; 83690; 83735; 85025; 85027; 85610; 85730; 86803; 86850; 86900; 86901; 86920; 93005; 96365; 99285; A4300; A9575

== ENCOUNTER → 2024-07-30 09:14 | Outpatient (REF) | payer OTHER, SELFPAY ==
[2024-07-30 09:34] LABS: % Basophils 1.1 % (0-2); % Eosinophils 7.5 % (0-6); % Immature Granulocytes 0.3 % (0-0.5); % Lymphocytes 27.5 % (20.5-51.1); % Neutrophils 56.6 % (42.2-75.2); Absolute Basophils 0.1 10^3/uL (0-0.2); Absolute Eosinophils 0.7 10^3/uL (0-0.7); Absolute Lymphocytes 2.4 10^3/uL (1.2-3.4); Absolute Monocytes 0.6 10^3/uL (0.1-0.6); Hematocrit 41.7 % (37.0-47.0); Hemoglobin 14.6 g/dL (12.0-16.0); Mean Corpuscular Hgb 31.5 pg (27.0-31.0); Mean Corpuscular Volume 90.1 fL (81.0-99.0); Mean Platelet Volume 9.8 fL (7.4-10.4); Nucleated Red Blood Cells % 0 %; Platelet Count 313 10^3/uL (130-400); Red Blood Cell Count 4.63 10^6/uL (4.20-5.40); Red Cell Dist. Width 11.6 % (11.5-14.5); White Blood Cell Count 8.9 10^3/uL (4.8-10.8)
[2024-07-30 10:12] LABS: ALT (SGPT) 80 U/L (0-35); AST (SGOT) 24 U/L (14-36); Alkaline Phosphatase 51 U/L (38-126); Blood Urea Nitrogen 16 mg/dl (7-17); Calcium 10.5 mg/dl (8.4-10.2); Carbon Dioxide 22 mmol/L (22-30); Chloride 103 mmol/L (98-107); Glucose 97 mg/dl (70-99); Potassium 4.8 mmol/L (3.5-5.1); Sodium 141 mmol/L (135-145); Total Bilirubin 0.6 mg/dl (0.2-1.3); Total Protein 7.6 g/dl (6.3-8.2); eGFR > 60.00
== END ==
LOC: REG 09:14
PROVIDERS: ATTENDING PHYSICIAN Nurse Practitioner
DX: R74.8 Abnormal levels of other serum enzymes (principal)
CPT/HCPCS: 36415; 80053; 85025

== ENCOUNTER → 2025-04-25 09:09 | Outpatient (REF) | payer OTHER, SELFPAY ==
[2025-04-25 10:33] LABS: ALT (SGPT) 28 U/L (0-35); AST (SGOT) 26 U/L (14-36); Albumin 5.1 g/dl (3.5-5.0); Alkaline Phosphatase 38 U/L (38-126); Blood Urea Nitrogen 14 mg/dl (7-17); Calcium 10.3 mg/dl (8.4-10.2); Carbon Dioxide 26 mmol/L (22-30); Chloride 106 mmol/L (98-107); Glucose 96 mg/dl (70-99); HDL Cholesterol 64 mg/dl; LDL Cholesterol, Calculated 69 mg/dl; Potassium 4.5 mmol/L (3.5-5.1); Sodium 140 mmol/L (135-145); Total Protein 7.8 g/dl (6.3-8.2); Very Low Density Lipoprotein 70 mg/dl (0-30); eGFR > 60.00
== END ==
LOC: REG 09:09
PROVIDERS: ATTENDING PHYSICIAN Nuclear Medicine Nuclear Cardiology; FAMILY PHYSICIAN Nurse Practitioner
DX: E78.5 Hyperlipidemia, unspecified (principal); Z95.5 Presence of coronary angioplasty implant and graft; I10 Essential (primary) hypertension
CPT/HCPCS: 36415; 80053; 80061

== ENCOUNTER → 2025-05-22 13:55 | Outpatient (REF) | payer OTHER, SELFPAY | LOC: RCS 13:55 | PROVIDERS: ATTENDING PHYSICIAN Nuclear Medicine Nuclear Cardiology; FAMILY PHYSICIAN Nurse Practitioner | DX: I49.3 Ventricular premature depolarization (principal); I25.119 Atherosclerotic heart disease of native coronary artery with unspecified angina pectoris; Z95.5 Presence of coronary angioplasty implant and graft; E78.5 Hyperlipidemia, unspecified; I10 Essential (primary) hypertension | CPT/HCPCS: 93306 ==

== ENCOUNTER → 2025-09-19 09:52 | Outpatient (REF) | payer OTHER, SELFPAY ==
[2025-09-19 10:49] LABS: Hematocrit 40.6 % (37.0-47.0); Hemoglobin 13.9 g/dL (12.0-16.0); Mean Corp Hgb Conc. 34.2 g/dL (33.0-37.0); Mean Corpuscular Volume 89.4 fL (81.0-99.0); Nucleated Red Blood Cells % 0 %; Platelet Count 287 10^3/uL (130-400); Red Cell Dist. Width 11.8 % (11.5-14.5)
[2025-09-19 11:16] LABS: ALT (SGPT) 27 U/L (0-35); AST (SGOT) 27 U/L (14-36); Albumin 4.8 g/dl (3.5-5.0); Alkaline Phosphatase 44 U/L (38-126); Blood Urea Nitrogen 14 mg/dl (7-17); Calcium 10.2 mg/dl (8.4-10.2); Carbon Dioxide 26 mmol/L (22-30); Chloride 103 mmol/L (98-107); Glucose 89 mg/dl (70-99); HDL Cholesterol 51 mg/dl; LDL Cholesterol, Calculated 87 mg/dl; Potassium 4.7 mmol/L (3.5-5.1); Sodium 138 mmol/L (135-145); Total Protein 7.7 g/dl (6.3-8.2); Very Low Density Lipoprotein 54 mg/dl (0-30); eGFR > 60.00
== END ==
LOC: REG 09:52
PROVIDERS: ATTENDING PHYSICIAN Nuclear Medicine Nuclear Cardiology; FAMILY PHYSICIAN Hospitalist
DX: Z95.5 Presence of coronary angioplasty implant and graft (principal); E78.5 Hyperlipidemia, unspecified; I10 Essential (primary) hypertension; Z00.00 Encounter for general adult medical examination without abnormal findings
CPT/HCPCS: 36415; 80053; 80061; 85025